=== PATIENT | female | born 1965 | race Caucasian/White ===

== ENCOUNTER → 2018-04-05 | Outpatient (CLI) | payer OTHER ==
[~2018-04-05] MED LIST: AMOX-559 PO; BACDS PO; BIRTH CONTROL PO; CAL500 PO; CEP500 PO; CLIN300C99 PO; CYMBALTA; DESO1TAB40 PO; DUL30 PO; DULO60CA56 PO; ESC10 PO; ETHI1TAB26 PO; FEXO-72 PO; FLUT16SP19 NS; GUAI-334 PO; HYDR-3503 PO; LOR10/325 PO; MEDR10TA57 PO; MINO100C27 PO; ONDA4TAB PO; ONDA4TAB97 PO; VITA1CAP8 PO; ZOL5 PO; [UNRECOGNIZED DRUG - CODE] IV
--- NOTE | 2018-04-05 15:47 | RADIOLOGY IMAGING REPORT ---
FACILITY: [facility] PATIENT NAME: CLINT PARSONS : [id number] MR: [id number] V: [id number] EXAM DATE: [id number] ORDERING PHYSICIAN: RUFINA VOGEL TECHNOLOGIST: Evonne Field PROCEDURE:BILATERAL DIGITAL SCREENING MAMMOGRAM WITH CAD ASSISTED INTERPRETATION & 3D TOMOSYNTHESIS COMPARISON:Prior mammograms 07/11/16. INDICATIONS:SCREENING FINDINGS: Moderately dense fibroglandular tissue is seen throughout the breasts. The parenchymal pattern has remained stable allowing for difference in mammographic technique & patient positioning. There is no evidence of malignant appearing mass, malignant appearing calcifications or other secondary sign of malignancy in either breast. DIAGNOSTIC CATEGORY 1--NEGATIVE. RECOMMENDATIONS: ROUTINE MAMMOGRAM AND CLINICAL EVALUATION. IMPRESSION: BIRADS 1: Negative No significant abnormality is seen. Dictated by: Petra Flores M.D. on 04/05/2018 at 15:27 Transcribed by: SINDHU on 04/05/2018 at 15:31 Approved by: Petra Flores M.D. on 04/05/2018 at 15:46 [facility]
== END ==
LOC: MAMO 03:23
PROVIDERS: ATTEND Family Medicine
DX: Z12.31 Encounter for screening mammogram for malignant neoplasm of breast (principal)
CPT/HCPCS: 77063; 77067

== ENCOUNTER → 2019-03-31 | Outpatient (CLI) | payer OTHER ==
--- NOTE | 2019-03-31 16:34 | RADIOLOGY IMAGING REPORT ---
FACILITY: [facility] - [place], [place] PATIENT NAME: Kin Gallego : 1965 MR: [id number] V: [id number] EXAM DATE: ORDERING PHYSICIAN: ZEENAT WEBB TECHNOLOGIST: Location: [facility] [place] Patient: Kin Gallego : 1965 Visit/Account:[id number] Date of Sevice: 03/31/2019 Right foot, three views. HISTORY: Fifth toe pain for three years, history of repeated injuries. COMPARISON: 07/17/2006. A mild deformity is present in the shaft of the fifth proximal phalanx consistent with a healed fract ure, new since 07/17/2006. Small marginal osteophytes and moderate joint space narrowing are present in the fifth IP joint. A small spur is present along the plantar aspect of the calcaneus. The bone s, joints, and soft tissues are otherwise unremarkable. IMPRESSION: Healed fifth proximal phalanx fracture. 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 Report Dictated By: Donato Hawk MD at 03/31/2019 4:23 PM Report E-Signed By: Donato Hawk MD at 03/31/2019 4:28 PM WSN:[email or web address]
== END ==
LOC: RAD 16:00
PROVIDERS: ATTEND Family Medicine
DX: M19.071 Primary osteoarthritis, right ankle and foot (principal)